=== PATIENT | female | born 2000 | race Caucasian/White ===

== ENCOUNTER 2020-01-09 09:00 | Outpatient (CLI) | payer BC ==
--- NOTE | 2020-01-09 14:02 | MRI ---
Exam: Temporal mandibular joint MRI. HISTORY: TMJ arthritis. COMPARISON: None. FINDINGS: There is metallic susceptibility artifact from braces and permanent retainer. Visualized brain parenchyma does not demonstrate any acute abnormality. Right TMJ: The mandibular condyle appears to be appropriately located. No evidence of dislocation. No erosive or destructive changes. No evidence of marrow signal abnormality. On the closed mouth position, the meniscus appears to be appropriately located with respect of the condyle. Open-mouth im ages are suboptimal and the meniscus cannot be assessed. Left TMJ: The mandibular condyle appears to be appropriately located. No evidence of dislocation. No erosive or destructive changes. No evidence of marrow signal abnormality. On the closed mouth position, the meniscus appears to be appropriately located with respect to the condyle. Open-mouth im ages are suboptimal and the meniscus cannot be assessed. IMPRESSION: Limited evaluation due to metallic spray artifact. Capturing the meniscus on the open-mouth images is not possible. Transcribed Date/Time: 01/09/2020 2:48 PM
== END 2020-01-09 09:01 | disposition home or self-care (01) ==
LOC: TBSIIMAG 09:00
DX: M26.649 Arthritis of unspecified temporomandibular joint (principal)
CPT/HCPCS: 70336